=== PATIENT | male | born 1975 | race Caucasian/White ===

== ENCOUNTER 2016-12-21 14:21 | Emergency (ER) | payer OTHER ==
--- NOTE | 2016-12-21 14:42 | ERPHSYRPT ---
- History of Present Illness Source: patient Timing/Duration: today Severity: moderate Modifying Factors: Improves With: nothing Associated Symptoms: denies symptoms <GURPREET MERINO - Last Filed: 12/21/16 19:04> <DANIEL GALINDO - Last Filed: 12/21/16 20:32> - History of Present Illness Time Seen by Provider: 12/21/16 14:36 Physician History: This is a 41-year-old white male who is brought by the [facility] with complaint that patient was possibly overheard wanting to "shoot up Courthouse" earlier today also when patient was being transported by the police this afternoon to please overheard him state that "this might make someone want to kill himself" Patient was apparently upset over a Will He has had a recent of his father. Patient is told the nurse that he is on Suboxone he tells me he has no medical problems. He denies hallucinations. He denies suicidal ideation. He denies homicidal ideation. He states he has never tried to harm himself. He states he has no psychiatric history. When I asked him if these heard voices he asked me if I'm trying to find out if he schizophrenic. Social history patient states he chews tobacco. (GURPREET MERINO) Allergies/Adverse Reactions: No Known Drug Allergies Allergy (Unverified 12/21/16 14:39) Home Medications: Buprenorphine HCl/Naloxone HCl [Suboxone 8 mg-2 mg Tablet Sl] each SL DAILY 03/29 [History] - Review of Systems Constitutional: No Fever, No Chills Eyes: No Symptoms Ears, Nose, & Throat: No Symptoms Respiratory: No Cough, No Dyspnea Cardiac: No Chest Pain, No Edema, No Syncope Abdominal/Gastrointestinal: No Abdominal Pain, No Nausea, No Vomiting, No Diarrhea Genitourinary Symptoms: No Dysuria Musculoskeletal: No Back Pain, No Neck Pain Skin: No Rash Neurological: No Dizziness, No Focal Weakness, No Sensory Changes Psychological: No Alcohol Abuse, No Drug Abuse, No Anxiety, No Depression, No Suicidal Ideations, No Homicidal Ideations, No Emotional Lability, No Hallucinations, No Memory Loss, No Mood Changes Endocrine: No Symptoms All Other Systems: Reviewed and Negative <GURPREET MERINO - Last Filed: 12/21/16 19:04> - Past Medical History Pertinent Past Medical History: No Other Medical History: patient denies past medical history patient apparently however is on suboxone - Past Surgical History Past Surgical History: No <GURPREET MERINO - Last Filed: 12/21/16 19:04> - Physical Exam General Appearance: other (well-developed well-nourished white male alert oriented 3) Eye Exam: PERRL/EOMI, eyes nml inspection Ears, Nose, Throat Exam: normal ENT inspection, TMs normal, pharynx normal, moist mucous membranes Neck Exam: normal inspection, non-tender, supple, full range of motion Respiratory Exam: normal breath sounds, lungs clear, No respiratory distress Cardiovascular Exam: regular rate/rhythm, normal heart sounds, normal peripheral pulses Gastrointestinal/Abdomen Exam: soft, normal bowel sounds, No tenderness, No mass Back Exam: normal inspection, normal range of motion, No CVA tenderness, No vertebral tenderness Extremity Exam: normal inspection, normal range of motion, pelvis stable Neurologic Exam: alert, oriented x 3, cooperative, normal mood/affect, nml cerebellar function, nml station & gait, sensation nml, other (patient denies suicidal or homicidal ideation, he does appear to be somewhat hypervigilant and has perhaps somewhat flat affect he does seem to be annoyed over questions), No motor deficits Skin Exam: normal color, warm, dry, No rash Lymphatic Exam: No adenopathy SpO2 Interpretation: normal (98GU him%) <GURPREET MERINO - Last Filed: 12/21/16 19:04> - Nursing Vital Signs Nursing Vital Signs: Initial Vital Signs Temperature 98.6 F 12/21/16 14:23 Pulse Rate 98 H 12/21/16 14:23 Respiratory Rate 18 12/21/16 14:23 Blood Pressure 139/88 12/21/16 14:23 O2 Sat by Pulse Oximetry 98 12/21/16 14:23 Pain Scale Pain Intensity 0 - Course Nursing assessment & vital signs reviewed: Yes EKG Interpreted by Me: RATE (75 bpm), Sinus Rhythm, Other (EKG: Sinus rhythm at 75 bpm,Si/ AxisqIII pattern, isolated T-wave inversion lead III no acute ST or T wave changes noted.) <GURPREET MERINO - Last Filed: 12/21/16 19:04> Ordered Tests: Active Orders 24 hr Category Date Time Status EKG-ER Only STAT Care 12/21/16 14:46 Active Psychiatric Evaluation STAT Care 12/21/16 14:47 Active ACETAMINOPHEN Stat Lab 12/21/16 15:10 Completed CBC W DIFF Stat Lab 12/21/16 14:46 Completed CMP Stat Lab 12/21/16 15:10 Completed ETHYL ALCOHOL Stat Lab 12/21/16 15:10 Completed SALICYLATE Stat Lab 12/21/16 15:10 Completed UA W/RFX UR CULTURE Stat Lab 12/21/16 14:46 Completed Urine Triage Profile Stat Lab 12/21/16 14:46 Completed Lab/Rad Data: Laboratory Result Diagrams 12/21/16 14:46 12/21/16 15:10 Laboratory Results 12/21/16 12/21/16 12/21/16 Range/Units 15:10 14:46 14:46 WBC 8.2 (4.0-10.5) K/mm3 RBC 4.95 (4.1-5.6) M/mm3 Hgb 14.3 (12.5-18.0) gm/dl Hct 43.7 (42-50) % MCV 88.3 (78-100) fl MCH 28.9 (26-32) pg MCHC 32.7 (32-36) g/dl RDW 12.8 (11.5-14.0) % Plt Count 221 (150-450) K/mm3 MPV 9.4 (6-9.5) fl Gran % 72.3 H (36.0-66.0) % Lymphocytes % 18.2 L (24.0-44.0) % Monocytes % 6.0 (0.0-12.0) % Eosinophils % 3.4 (0.00-5.0) % Basophils % 0.1 (0.0-0.4) % Basophils # 0.01 (0-0.4) Sodium 142 (136-145) mEq/L Potassium 3.7 (3.5-5.1) mEq/L Chloride 103 (98-107) mEq/L Carbon Dioxide 29.7 (21-32) mEq/L Anion Gap 12.6 (5-15) MEQ/L BUN 13 (9-20) mg/dL Creatinine 1.18 (0.55-1.30) mg/dl Estimated GFR > 60 ML/MIN Glucose 99 (70-110) MG/DL Calcium 9.4 (8.5-10.1) mg/dL Total Bilirubin 1.00 (0.2-1.0) mg/dL AST 20 (15-37) U/L ALT 22 (12-78) U/L Alkaline Phosphatase 110 (46-116) U/L Serum Total Protein 7.9 (6.4-8.2) gm/dL Albumin 4.5 (3.4-5.0) g/dL Ur Collection Type Urine Color (YELLOW) Urine Appearance (CLEAR) Urine pH (5-6) Ur Specific [place] (1.005-1.025) Urine Protein (Negative) Urine Ketones (NEGATIVE) Urine Blood (0-5) Maxx/ul Urine Nitrite (NEGATIVE) Urine Bilirubin (NEGATIVE) Urine Urobilinogen (0-1) mg/dL Ur Leukocyte Esterase (NEGATIVE) Urine Glucose (NEGATIVE) mg/dL Salicylates < 2.8 L (2.8-20.0) mg/dl Urine Opiates Level NEG. (NEGATIVE) Ur Methadone NEG. (NEGATIVE) Acetaminophen < 2.0 L (10-30) ug/ml Urine Barbiturates NEG. (NEGATIVE) Ur Phencyclidine (PCP) NEG. (NEGATIVE) Urine Amphetamine NEG. (NEGATIVE) U Benzodiazepine Level NEG. (NEGATIVE) Urine Cocaine NEG. (NEGATIVE) Urine Marijuana (THC) NEG. (NEGATIVE) Ethyl Alcohol < 0.010 (0.00-0.01) % Specimen Received 12/21/16 Range/Units 14:46 WBC (4.0-10.5) K/mm3 RBC (4.1-5.6) M/mm3 Hgb (12.5-18.0) gm/dl Hct (42-50) % MCV (78-100) fl MCH (26-32) pg MCHC (32-36) g/dl RDW (11.5-14.0) % Plt Count (150-450) K/mm3 MPV (6-9.5) fl Gran % (36.0-66.0) % Lymphocytes % (24.0-44.0) % Monocytes % (0.0-12.0) % Eosinophils % (0.00-5.0) % Basophils % (0.0-0.4) % Basophils # (0-0.4) Sodium (136-145) mEq/L Potassium (3.5-5.1) mEq/L Chloride (98-107) mEq/L Carbon Dioxide (21-32) mEq/L Anion Gap (5-15) MEQ/L BUN (9-20) mg/dL Creatinine (0.55-1.30) mg/dl Estimated GFR ML/MIN Glucose (70-110) MG/DL Calcium (8.5-10.1) mg/dL Total Bilirubin (0.2-1.0) mg/dL AST (15-37) U/L ALT (12-78) U/L Alkaline Phosphatase (46-116) U/L Serum Total Protein (6.4-8.2) gm/dL Albumin (3.4-5.0) g/dL Ur Collection Type VOID Urine Color YELLOW (YELLOW) Urine Appearance CLEAR (CLEAR) Urine pH 5.0 (5-6) Ur Specific [place] 1.020 (1.005-1.025) Urine Protein NEGATIVE (Negative) Urine Ketones NEGATIVE (NEGATIVE) Urine Blood NEGATIVE (0-5) Maxx/ul Urine Nitrite NEGATIVE (NEGATIVE) Urine Bilirubin NEGATIVE (NEGATIVE) Urine Urobilinogen NORMAL (0-1) mg/dL Ur Leukocyte Esterase NEGATIVE (NEGATIVE) Urine Glucose NEGATIVE (NEGATIVE) mg/dL Salicylates (2.8-20.0) mg/dl Urine Opiates Level (NEGATIVE) Ur Methadone (NEGATIVE) Acetaminophen (10-30) ug/ml Urine Barbiturates (NEGATIVE) Ur Phencyclidine (PCP) (NEGATIVE) Urine Amphetamine (NEGATIVE) U Benzodiazepine Level (NEGATIVE) Urine Cocaine (NEGATIVE) Urine Marijuana (THC) (NEGATIVE) Ethyl Alcohol (0.00-0.01) % Specimen Received 12/21/16 1446 - Progress Progress: improved <GURPREET MERINO - Last Filed: 12/21/16 19:04> - Progress Progress: improved Counseled pt/family regarding: need for follow-up <DANIEL GALINDO - Last Filed: 12/21/16 20:32> - Progress Progress Note: 12/21/16 14:44 This is a 41-year-old white male who was brought by the local [employer] with complaint that he was overheard possibly wanting to shoot up the court house, Apparently the patient was upset because he was a cut from a Will his father had recently and had made a remark that he wanted to shoot up the court house. He is also heard by the [employer] barista department during transport to say "was kind of makes a brandi want to kill himself" Upon my interview patient seems to be annoyed with the whole process he does have somewhat of a flat affect Patient denies suicidal or homicidal ideation. He denies history of psychiatric problems in the past. He states he has not tried to kill himself. He states that he chews tobacco denies alcohol or illicit drug use. When I asked about hallucinations he asked if I was trying to find out if he is a schizophrenic. Patient is cooperative to examination 12/21/16 18:39 Still awaiting for tele- psych evaluation 12/21/16 19:02 the patient's case will be turned over to Dr Galindo secondary to shift change the patient's case was discussed with Dr Galidno (GURPREET MERINO) 12/21/16 20:17 Patient underwent telemetry psych evaluation. According to the nurse who did evaluation states that patient is not telling her anything about wanting to shoot the courthouse, so she has no proof for emergency detaining him. According to her he can be followed up as outpatient with his psychiatrist or at [facility] (DANIEL GALINDO) <GURPREET MERINO - Last Filed: 12/21/16 19:04> - Departure Time of Disposition: 20:28 Departure Disposition: Home Critical Care Time: Yes Critical Care Time(excluding separately billable procedures): 75-104 minutes <DANIEL GALINDO - Last Filed: 12/21/16 20:32> - Departure Clinical Impression: Anxiety as acute reaction to exceptional stress, Bipolar 1 disorder, manic, mild Condition: Stable Referrals: Provider,Unknown [Primary Care Provider] - Followup in 3 days w/ PCP (follow up with [facility] [place] [facility] [place]) Instructions: Bipolar Disorder
[2016-12-21 15:03] LABS: ADD URINE CULTURE? NO (NO); Bilirubin NEGATIVE (NEGATIVE); Blood NEGATIVE Ery/ul (0-5); COMPLETE URINE MICROSCOPIC? NO; Collection Type VOID; Glucose NEGATIVE (NEGATIVE); Leukocyte Esterase NEGATIVE (NEGATIVE)
[2016-12-21 15:12] LABS: BASOPHIL % 0.1 % (0.0-0.4); Eosinophil % 3.4 % (0.00-5.0); Granulocytes % 72.3 % (36.0-66.0); Lymphocytes % 18.2 % (24.0-44.0); Mean Cell Volume 88.3 fl (78-100); Mean Corpuscular Hemoglobin 28.9 pg (26-32); Mean Platelet Volume 9.4 fl (6-9.5); Platelet Count 221 K/mm3 (150-450); Red Blood Count 4.95 M/mm3 (4.1-5.6); Red Cell Distribution Width 12.8 % (11.5-14.0); White Blood Count 8.2 K/mm3 (4.0-10.5)
[2016-12-21 15:26] LABS: ALBUMIN 4.5 g/dL (3.4-5.0); ALKALINE PHOSPHATASE 110 U/L (46-116); ANION GAP 12.6 MEQ/L (5-15); BLOOD UREA NITROGEN 13 mg/dL (9-20); CHLORIDE 103 mEq/L (98-107); Carbon Dioxide 29.7 mEq/L (21-32); ETHYL ALCOHOL < 0.010 % (0.00-0.01); Glucose 99 MG/DL (70-110); Potassium 3.7 mEq/L (3.5-5.1); SGOT/AST 20 U/L (15-37); SGPT/ALT 22 U/L (12-78); SODIUM 142 mEq/L (136-145); Total Protein 7.9 gm/dL (6.4-8.2)
[2016-12-21 15:28] LABS: ACETAMINOPHEN < 2.0 ug/ml (10-30)
[2016-12-21 20:36] VITALS: BP 138/76; PULSE 88; O2SAT 97
== END 2016-12-21 20:36 | disposition home or self-care (01) ==
LOC: ED 14:21
DX: F41.1 Generalized anxiety disorder (principal); F43.8 Other reactions to severe stress; F30.9 Manic episode, unspecified
CPT/HCPCS: 36415; 80053; 80307; 81002; 85025; 90791; 93005; 99284; G0481; Q3014

== ENCOUNTER 2020-01-13 08:14 | Emergency (ER) | payer OTHER, MEDICAID ==
--- NOTE | 2020-01-13 08:18 | ERPHSYRPT ---
- History of Present Illness Time Seen by Provider: 01/13/20 08:18 Source: patient Exam Limitations: clinical condition Physician History: This is a 44-year-old white male who has a history of anxiety disorder and bipolar disorder and presents to the emergency department via the police department for public lewdness (patient naked in his front yard), talking to himself, and paranoid behavior. Patient states that he had ingested some type of drugs for a high but not to commit suicide. He has no suicidal or homicidal ideation. Patient states he has no physical complaints. He has no chest pain no shortness of breath no abdominal pain. Patient has not taking his prescribed medication for several weeks Timing/Duration: today Severity of Symptoms-Max: moderate Severity of Symptoms-Current: moderate Context related to: other (Mental health issues) Suicidal thoughts: other (None) Associated Symptoms: agitated, impaired concentration, ingestion, paranoid, No suicidal ideation Previous symptoms: same symptoms as today Allergies/Adverse Reactions: No Known Drug Allergies Allergy (Verified 01/13/20 08:24) Home Medications: Buprenorphine HCl/Naloxone HCl [Suboxone 8 mg-2 mg Tablet Sl] 1 each SL DAILY 12/21/16 [History] Hx Tetanus, Diphtheria Vaccination/Date Given: Yes (up to date) Hx Influenza Vaccination/Date Given: Yes Hx Pneumococcal Vaccination/Date Given: No Travel Risk - International Travel Have you traveled outside of the country in past 3 weeks: No - Coronavirus Screening Are you exhibiting any of the following symptoms?: No Close contact with a COVID-19 positive Pt in past 14-21 Days: No - Past Medical History Pertinent Past Medical History: No Neurological History: No Pertinent History ENT History: No Pertinent History Cardiac History: No Pertinent History Respiratory History: No Pertinent History Endocrine Medical History: No Pertinent History Musculoskeletal History: No Pertinent History GI Medical History: No Pertinent History History: No Pertinent History Psycho-Social History: No Pertinent History Male Reproductive Disorders: No Pertinent History Other Medical History: patient denies past medical history patient apparently however is on suboxone - Past Surgical History Past Surgical History: No Neuro Surgical History: No Pertinent History Cardiac: No Pertinent History Respiratory: No Pertinent History Gastrointestinal: No Pertinent History Genitourinary: No Pertinent History Musculoskeletal: No Pertinent History Male Surgical History: No Pertinent History - Social History Smoking Status: Never smoker Drug Use: none Patient Lives Alone: Yes (unknown) - Review of Systems Constitutional: No Symptoms Eyes: No Symptoms Ears, Nose, & Throat: No Symptoms Respiratory: No Symptoms Cardiac: No Symptoms Abdominal/Gastrointestinal: No Symptoms Genitourinary Symptoms: No Symptoms Musculoskeletal: No Symptoms Skin: No Symptoms Neurological: No Symptoms Psychological: Anxiety, Mood Changes, Other (Paranoid behavior) Endocrine: No Symptoms Hematologic/Lymphatic: No Symptoms Immunological/Allergic: No Symptoms All Other Systems: Reviewed and Negative - Nursing Vital Signs Nursing Vital Signs: Initial Vital Signs Temperature 98.5 F 01/13/20 08:15 Pulse Rate 92 H 01/13/20 08:15 Respiratory Rate 22 01/13/20 08:15 Blood Pressure 149/82 01/13/20 08:15 O2 Sat by Pulse Oximetry 98 01/13/20 08:15 Pain Scale Pain Intensity 0 - Physical Exam General Appearance: no apparent distress, alert, anxiety Eyes, Ears, Nose, Throat Exam: normal ENT inspection, moist mucous membranes Neck Exam: normal inspection, non-tender, supple, full range of motion Respiratory Exam: normal breath sounds, lungs clear, airway intact, No chest tenderness, No respiratory distress Cardiovascular Exam: regular rate/rhythm, normal heart sounds, normal peripheral pulses Gastrointestinal/Abdominal Exam: soft, normal bowel sounds, No tenderness Current Suicidality: denies suicide plan Neurological Exam: alert, 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 as tested, oriented x 3, agitated, anxious Appearance: impaired insight Behavior/Eye Contact/Speech: good eye contact, increased rate of speech, compulsive, agitated Thoughts/Hallucinations: auditory hallucinations, paranoid Skin Exam: normal color, warm, dry SpO2 Interpretation: normal O2 Delivery: Room Air Ordered Tests: Active Orders 24 hr Category Date Time Status EKG-ER Only STAT Care 01/13/20 08:41 Active Psychiatric Consult STAT Cons 01/13/20 08:41 Active ACETAMINOPHEN Stat Lab 01/13/20 09:13 Completed CBC W DIFF Stat Lab 01/13/20 09:13 Completed CMP Stat Lab 01/13/20 09:13 Completed ETHYL ALCOHOL Stat Lab 01/13/20 09:13 Completed SALICYLATE Stat Lab 01/13/20 09:13 Completed UA W/RFX UR CULTURE Stat Lab 01/13/20 10:31 Completed Urine Triage Profile Stat Lab 01/13/20 10:31 Completed Lab/Rad Data: Laboratory Result Diagrams 01/13/20 09:13 09/02/20 09:13 Laboratory Results 01/13/20 01/13/20 01/13/20 Range/Units 10:31 10:31 09:13 WBC (4.0-10.5) K/mm3 RBC (4.1-5.6) M/mm3 Hgb (12.5-18.0) gm/dl Hct (42-50) % MCV (78-100) fl MCH (26-32) pg MCHC (32-36) g/dl RDW (11.5-14.0) % Plt Count (150-450) K/mm3 MPV (7.5-11.0) fl Gran % (36.0-66.0) % Eos # (Auto) (0-0.5) Absolute Lymphs (auto) (1.0-4.6) Absolute Monos (auto) (0.0-1.3) Lymphocytes % (24.0-44.0) % Monocytes % (0.0-12.0) % Eosinophils % (0.00-5.0) % Basophils % (0.0-0.4) % Absolute Granulocytes (1.4-6.9) Basophils # (0-0.4) Sodium 137 (137-145) mmol/L Potassium 3.5 (3.5-5.1) mmol/L Chloride 104 (98-107) mmol/L Carbon Dioxide 26 (22-30) mmol/L Anion Gap 11.1 (5-15) MEQ/L BUN 14 (9-20) mg/dL Creatinine 0.79 (0.66-1.25) mg/dL Estimated GFR > 60.0 ML/MIN Glucose 109 H (74-106) mg/dL Calcium 9.4 (8.4-10.2) mg/dL Total Bilirubin 2.20 H (0.2-1.3) mg/dL AST 96 H (17-59) U/L ALT 55 H (0-50) U/L Alkaline Phosphatase 82 (38-126) U/L Serum Total Protein 7.3 (6.3-8.2) g/dL Albumin 4.5 (3.5-5.0) g/dL Urine Color [place] (YELLOW) Urine Appearance SLIGHTLY CLOUDY (CLEAR) Urine pH 5.0 (5-6) Ur Specific [place] 1.035 (1.005-1.025) Urine Protein 100 (Negative) Urine Ketones TRACE (NEGATIVE) Urine Blood NEGATIVE (0-5) Maxx/ul Urine Nitrite NEGATIVE (NEGATIVE) Urine Bilirubin NEGATIVE (NEGATIVE) Urine Urobilinogen 2 (0-1) mg/dL Ur Leukocyte Esterase NEGATIVE (NEGATIVE) Urine WBC (Auto) 0-2 (0-5) /HPF Urine RBC (Auto) 0-2 (0-2) /HPF U Epithel Cells (Auto) NONE (FEW) /HPF Urine Bacteria (Auto) RARE (NEGATIVE) /HPF Urine Mucus (Auto) MANY (NEGATIVE) /HPF Urine Culture Reflexed NO (NO) Urine Glucose NEGATIVE (NEGATIVE) mg/dL Salicylates < 1.0 L (2-20) mg/dL Urine Opiates Level NEGATIVE (NEGATIVE) Ur Methadone NEGATIVE (NEGATIVE) Acetaminophen < 10 L (10-30) ug/ml Urine Barbiturates NEGATIVE (NEGATIVE) Ur Phencyclidine (PCP) NEGATIVE (NEGATIVE) Urine Amphetamine POSITIVE (NEGATIVE) U Benzodiazepine Level NEGATIVE (NEGATIVE) Urine Cocaine NEGATIVE (NEGATIVE) Urine Marijuana (THC) NEGATIVE (NEGATIVE) Ethyl Alcohol < 10 (0-10) mg/dL 01/13/20 Range/Units 09:13 WBC 12.3 H (4.0-10.5) K/mm3 RBC 4.24 (4.1-5.6) M/mm3 Hgb 12.6 (12.5-18.0) gm/dl Hct 37.4 L (42-50) % MCV 88.2 (78-100) fl MCH 29.7 (26-32) pg MCHC 33.7 (32-36) g/dl RDW 12.6 (11.5-14.0) % Plt Count 194 (150-450) K/mm3 MPV 9.5 (7.5-11.0) fl Gran % 84.8 H (36.0-66.0) % Eos # (Auto) 0.03 (0-0.5) Absolute Lymphs (auto) 0.96 L (1.0-4.6) Absolute Monos (auto) 0.87 (0.0-1.3) Lymphocytes % 7.8 L (24.0-44.0) % Monocytes % 7.1 (0.0-12.0) % Eosinophils % 0.2 (0.00-5.0) % Basophils % 0.1 (0.0-0.4) % Absolute Granulocytes 10.44 H (1.4-6.9) Basophils # 0.01 (0-0.4) Sodium (137-145) mmol/L Potassium (3.5-5.1) mmol/L Chloride (98-107) mmol/L Carbon Dioxide (22-30) mmol/L Anion Gap (5-15) MEQ/L BUN (9-20) mg/dL Creatinine (0.66-1.25) mg/dL Estimated GFR ML/MIN Glucose (74-106) mg/dL Calcium (8.4-10.2) mg/dL Total Bilirubin (0.2-1.3) mg/dL AST (17-59) U/L ALT (0-50) U/L Alkaline Phosphatase (38-126) U/L Serum Total Protein (6.3-8.2) g/dL Albumin (3.5-5.0) g/dL Urine Color (YELLOW) Urine Appearance (CLEAR) Urine pH (5-6) Ur Specific [place] (1.005-1.025) Urine Protein (Negative) Urine Ketones (NEGATIVE) Urine Blood (0-5) Maxx/ul Urine Nitrite (NEGATIVE) Urine Bilirubin (NEGATIVE) Urine Urobilinogen (0-1) mg/dL Ur Leukocyte Esterase (NEGATIVE) Urine WBC (Auto) (0-5) /HPF Urine RBC (Auto) (0-2) /HPF U Epithel Cells (Auto) (FEW) /HPF Urine Bacteria (Auto) (NEGATIVE) /HPF Urine Mucus (Auto) (NEGATIVE) /HPF Urine Culture Reflexed (NO) Urine Glucose (NEGATIVE) mg/dL Salicylates (2-20) mg/dL Urine Opiates Level (NEGATIVE) Ur Methadone (NEGATIVE) Acetaminophen (10-30) ug/ml Urine Barbiturates (NEGATIVE) Ur Phencyclidine (PCP) (NEGATIVE) Urine Amphetamine (NEGATIVE) U Benzodiazepine Level (NEGATIVE) Urine Cocaine (NEGATIVE) Urine Marijuana (THC) (NEGATIVE) Ethyl Alcohol (0-10) mg/dL - Progress Progress: unchanged, re-examined Progress Note: 01/13/20 13:37 [facility] performed a [id number] evaluation of this patient. The evaluation was reviewed by [facility] physician. They recommend inpatient management. Patient states that he would voluntarily go to [facility] or other local inpatient facility. However, the patient is [facility] and he refuses to go voluntarily to the [place]. He does not want to sign any form of payment responsibility from the [place] if he is to go to a different facility. We will obtain emergency intermediate and he will either go to [facility] or other local inpatient psychiatric facility or to the [place]. Counseled pt/family regarding: lab results, diagnosis - Departure Departure Disposition: Transfer Clinical Impression: Paranoid behavior, Auditory hallucinations, Agitation, Methamphetamine abuse, Impaired insight Condition: Stable Critical Care Time: No Referrals: Provider,Unknown [NON-STAFF PHY W/O PRIVILEGES] -
[2020-01-13 09:16] LABS: Absolute Neutrophil Ct (ANC) 10.44 (1.4-6.9); BASOPHIL % 0.1 % (0.0-0.4); Basophil (Absolute #) 0.01 (0-0.4); Eosinophil % 0.2 % (0.00-5.0); Eosinophil (Absolute #) 0.03 (0-0.5); Hematocrit 37.4 % (42-50); Hemoglobin 12.6 gm/dl (12.5-18.0); Lymphocyte (Absolute #) 0.96 (1.0-4.6); Lymphocytes % 7.8 % (24.0-44.0); Mean Cell Volume 88.2 fl (78-100); Mean Corpuscular Hemoglobin 29.7 pg (26-32); Mean Corpuscular Hgb Concent. 33.7 g/dl (32-36); Mean Platelet Volume 9.5 fl (7.5-11.0); Monocyte (Absolute #) 0.87 (0.0-1.3); Monocytes % 7.1 % (0.0-12.0); Neutrophil % 84.8 % (36.0-66.0); Platelet Count 194 K/mm3 (150-450); Red Blood Count 4.24 M/mm3 (4.1-5.6); Red Cell Distribution Width 12.6 % (11.5-14.0); White Blood Count 12.3 K/mm3 (4.0-10.5)
[2020-01-13 10:35] LABS: Appearance SLIGHTLY CLOUDY (CLEAR); Bacteria RARE /HPF (NEGATIVE); Bilirubin NEGATIVE (NEGATIVE); Blood NEGATIVE Ery/ul (0-5); Glucose NEGATIVE (NEGATIVE); Ketones TRACE (NEGATIVE); Leukocyte Esterase NEGATIVE (NEGATIVE); Mucus MANY /HPF (NEGATIVE); Nitrite NEGATIVE (NEGATIVE); Protein,Urine Dip 100 (Negative); RBC 0-2 /HPF (0-2); Specific Gravity 1.035 (1.005-1.025); Urobilinogen 2 mg/dL (0-1); WBC 0-2 /HPF (0-5)
[2020-01-13 10:59] LABS: ALBUMIN 4.5 g/dL (3.5-5.0); ALKALINE PHOSPHATASE 82 U/L (38-126); ANION GAP 11.1 MEQ/L (5-15); BLOOD UREA NITROGEN 14 mg/dL (9-20); CHLORIDE 104 mmol/L (98-107); Calcium 9.4 mg/dL (8.4-10.2); Carbon Dioxide 26 mmol/L (22-30); Creatinine 1 0.79 mg/dL (0.66-1.25); EST GLOMERULAR FILTRATION RATE > 60.0 ML/MIN; Glucose 109 mg/dL (74-106); Potassium 3.5 mmol/L (3.5-5.1); SGOT/AST 96 U/L (17-59); SGPT/ALT 55 U/L (0-50); SODIUM 137 mmol/L (137-145); Total Protein 7.3 g/dL (6.3-8.2)
[2020-01-13 11:03] LABS: ACETAMINOPHEN < 10 ug/ml (10-30); ETHYL ALCOHOL < 10 mg/dL (0-10); SALICYLATE < 1.0 mg/dL (2-20)
[2020-01-13 11:08] LABS: Barbiturate,Urine NEGATIVE (NEGATIVE); Benzodiazepine,Urine NEGATIVE (NEGATIVE); Cocaine,Urine NEGATIVE (NEGATIVE); Methadone,Urine NEGATIVE (NEGATIVE); Opiate,Urine NEGATIVE (NEGATIVE); PCP,Urine NEGATIVE (NEGATIVE); THC,Urine NEGATIVE (NEGATIVE)
[2020-01-13 11:34] LABS: Amphetamine,Urine POSITIVE (NEGATIVE)
[2020-01-13 14:40] VITALS: BP 132/69; O2SAT 98
[2020-01-13 16:28] VITALS: PULSE 74
== END 2020-01-13 16:29 | disposition short-term general hospital (02) ==
LOC: ED 08:14
DX: F60.0 Paranoid personality disorder (principal); R44.0 Auditory hallucinations; R45.1 Restlessness and agitation; F15.10 Other stimulant abuse, uncomplicated; H54.7 Unspecified visual loss
CPT/HCPCS: 36415; 80053; 80307; 81001; 85025; 90791; 93005; 99285; G0480; Q3014